=== PATIENT | female | born 1980 | race Caucasian/White ===

== ENCOUNTER 2017-02-27 13:27 | Emergency (ER) | payer OTHER ==
[~2017-02-27] VITALS: Ht 154.9 cm; Wt 61.2 kg
[~2017-02-27 13:27] MED LIST: ACETAMINOP80 MG/0.8 PO; ATHENOL325 MG; AUGMENTIN 500-500 MG PO; AUGMENTIN 875-1 EACH PO; BUPRENORPHINE HC8 MG SL; CEPHALEXIN500 MG PO; CLEOCIN HCL300 MG PO; CLONIDINE HCL0.1 MG; COLACE100 MG PO; DOXYCYCLINE HY100 M3 PO; FEOSOL325 MG PO; GARCINIA CAMBOGIA; IBUPROFEN400 MG PO; IBUPROFEN800 MG PO; IRON18 MG PO; KEFLEX500 MG PO; NICOTINE PATCH1 EAC1 TD; NORCO 5-325 TA1 EACH PO; ONCE DAILY1 EACH PO; OXYCODONE HCL5 MG PO; PENICILLIN V P500 MG PO; PRENATAL TABLE1 EAC1 PO; PROAIR HFA8.5 GM IH; PROTONIX20 MG PO; RASPBERRY KETONES; THERA M PLUS T1 EACH PO; TRAMADOL HCL50 MG PO; TYLENOL 8 HOUR650 MG PO; TYLENOL COLD &1 EACH PO; TYLENOL EXTRA500 MG PO; TYLENOL325 MG PO
[2017-02-27] MEDS ORDERED: ASPIRIN EC325 MG PO (13:48)
[2017-02-27] MEDS ORDERED: CIPRO500 MG PO (17:02)
== END 2017-02-27 17:15 | disposition home or self-care (01) ==
LOC: ED 13:27
DX: N39.0 Urinary tract infection, site not specified (principal); F17.200 Nicotine dependence, unspecified, uncomplicated; Z88.8 Allergy status to other drugs, medicaments and biological substances; Z79.899 Other long term (current) drug therapy; Z90.89 Acquired absence of other organs
CPT/HCPCS: 81001; 83605; 87088; 96361; 96374; 99283; J0696; J7030

== ENCOUNTER 2018-08-10 10:51 | Emergency (ER) | payer SELFPAY ==
[~2018-08-10] VITALS: Ht 154.9 cm; Wt 61.2 kg
[~2018-08-10 10:51] MED LIST changes: +ASPIRIN EC325 MG PO; +CIPRO500 MG PO
--- OUTSIDE RECORDS SUMMARY | 2018-08-10 10:56 | XMS ---
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 E.DVlad VISIT COUNT (12 MO.) 1 [facility] Gallardo TOTAL 1 NOTE: Visits indicate total known visits. ED/UCC VISIT TRACKING (12 MO.) 08/10/2018 10:[address] [facility] [place] TYPE: Emergency COMPLAINT: - SORES IN MOUTH INPATIENT VISIT TRACKING (12 MO.) No inpatient visits to display in this time frame [id number]
== END 2018-08-10 12:30 | disposition left against medical advice (07) ==
LOC: ED 10:51
DX: F15.10 Other stimulant abuse, uncomplicated (principal); Z87.891 Personal history of nicotine dependence; Z90.49 Acquired absence of other specified parts of digestive tract; Z79.899 Other long term (current) drug therapy
CPT/HCPCS: 81001; 87502; 99283

== ENCOUNTER 2021-06-20 11:23 | Emergency (ER) | payer OTHER ==
[~2021-06-20] VITALS: Ht 154.9 cm; Wt 72.4 kg
--- NOTE | ~2021-06-20 | EKG ---
[facility] [address] [place], [place] [address] Draft EK completed, results pending confirmation PATIENT NAME: ERIKA RIVERA Electrocardiogram DATE OF : 84 PHYSICIAN: PRELIMINARY REPORT #: [id number] REPORT IS CONFIDENTIAL AND NOT TO BE RELEASED WITHOUT AUTHORIZATION
[~2021-06-20 11:23] MED LIST changes: +BENADRYL ALLERG25 MG PO; +PRILOSEC OTC20 MG PO; +SUBOXONE 8 MG-1 EAC1 SL; +TRIAMCINOLONE A15 G1 TOP; +VITAMIN D250 MC1 PO; +ZOLOFT100 MG PO
--- OUTSIDE RECORDS SUMMARY | 2021-06-20 11:26 | XMS ---
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 EJulianne VISIT COUNT (12 MO.) 1 [facility]Y Gallardo TOTAL 1 NOTE: Visits indicate total known visits. ED/UCC VISIT TRACKING (12 MO.) 06/20/2021 11:23 [facility] [place] TYPE: Emergency COMPLAINT: - SOB INPATIENT VISIT TRACKING (12 MO.) No inpatient visits to display in this time frame [email or web address]
[2021-06-20] MEDS ORDERED: PREDNISONE20 MG PO (12:53)
[2021-06-20] MEDS ORDERED: ZITHROMAX250 MG PO (12:53)
--- NOTE | 2021-06-20 16:33 | EKG ---
[facility] [address] [place], [place] [address] Signed Sinus tachycardia Otherwise normal ECG When compared with ECG of 20-JUN-2021 11:36, (Unconfirmed) No significant change was found Confirmed by KEN PALACIOS DO ([id number]) on 06/20/2021 4:32:44 PM Electronically Signed By: KEN PALACIOS DO 06/20/21 1633 PATIENT NAME: ERIKA RIVERA Electrocardiogram DATE OF : 84 PHYSICIAN: KEN PALACIOS DO REPORT #: [id number] REPORT IS CONFIDENTIAL AND NOT TO BE RELEASED WITHOUT AUTHORIZATION
== END 2021-06-20 13:09 | disposition home or self-care (01) ==
LOC: ED 11:23
DX: J45.901 Unspecified asthma with (acute) exacerbation (principal); Z20.822 Contact with and (suspected) exposure to COVID-19; F17.200 Nicotine dependence, unspecified, uncomplicated; Z88.8 Allergy status to other drugs, medicaments and biological substances
CPT/HCPCS: 71045; 93005; 93010; 94640; 94664; 99285-25; C9803; J7512; U0003

== ENCOUNTER 2021-10-14 14:42 | Emergency (ER) | payer OTHER ==
[~2021-10-14] VITALS: Ht 154.9 cm; Wt 71.4 kg
[~2021-10-14 14:42] MED LIST changes: +PREDNISONE20 MG PO; +ZITHROMAX250 MG PO
--- OUTSIDE RECORDS SUMMARY | 2021-10-14 14:44 | XMS ---
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 Parvin has no Care Guidelines for this patient. Care History Medical/Surgical 06/21/2021 [facility] - [facility] CALLED PATIENT- NO PCP LISTED- PATIENT DID NOT ANSWER PHONE- UNABLE TO LEAVE A VM. - SENT NO PCP LETTER E.D. VISIT COUNT (12 MO.) 2 [facility] TOTAL 2 NOTE: Visits indicate total known visits. ED/UCC VISIT TRACKING (12 MO.) 10/14/2021 14:43 [facility] [place] TYPE: Emergency COMPLAINT: - VOMITING 06/20/2021 11:23 [facility] [place] TYPE: Emergency COMPLAINT: - SOB DIAGNOSES: - Nicotine dependence, unspecified, uncomplicated - Shortness of breath - Unspecified asthma with (acute) exacerbation - Contact with and (suspected) exposure to COVID-19 - Allergy status to other drugs, medicaments and biological substances INPATIENT VISIT TRACKING (12 MO.) No inpatient visits to display in this time frame [id number]
[2021-10-14] MEDS ORDERED: ONDANSETRON ODT4 MG PO (18:14)
== END 2021-10-14 18:28 | disposition home or self-care (01) ==
LOC: ED 14:42
DX: R11.2 Nausea with vomiting, unspecified (principal); R10.84 Generalized abdominal pain; F17.200 Nicotine dependence, unspecified, uncomplicated; Z88.8 Allergy status to other drugs, medicaments and biological substances
CPT/HCPCS: 36415; 80053; 81001; 83735; 84703; 85025; 96374; 99284-25; J2405; J7040

== ENCOUNTER 2022-05-14 08:41 | Emergency (ER) | payer OTHER ==
[~2022-05-14] VITALS: Ht 154.9 cm; Wt 71.2 kg
[~2022-05-14 08:41] MED LIST changes: +ONDANSETRON ODT4 MG PO
--- OUTSIDE RECORDS SUMMARY | 2022-05-14 08:44 | XMS ---
PreManage Notification: ERIKA RIVERA Security Nuclear Unit Operator Events No recent Security Events currently on file CRITERIA MET - Group Notification CARE PROVIDERS There are no care providers on record at this time. Parvin has no Care Guidelines for this patient. Care History Medical/Surgical 06/21/2021 [facility] - [facility] CALLED PATIENT- NO PCP LISTED- PATIENT DID NOT ANSWER PHONE- UNABLE TO LEAVE A VM. - SENT NO PCP LETTER E.D. VISIT COUNT (12 MO.) 3 [facility] TOTAL 3 NOTE: Visits indicate total known visits. ED/UCC VISIT TRACKING (12 MO.) [facility] COMPLAINT: - ABDOMINAL PAIN 10/14/2021 14:[address] [facility] [place] TYPE: Emergency COMPLAINT: - VOMITING DIAGNOSES: - Allergy status to other drugs, medicaments and biological substances - Nicotine dependence, unspecified, uncomplicated - Generalized abdominal pain - Nausea with vomiting, unspecified 06/20/2021 11:[address] [facility] [place] TYPE: Emergency COMPLAINT: - SOB DIAGNOSES: - Contact with and (suspected) exposure to COVID-19 - Shortness of breath - Allergy status to other drugs, medicaments and biological substances - Unspecified asthma with (acute) exacerbation - Nicotine dependence, unspecified, uncomplicated INPATIENT VISIT TRACKING (12 MO.) No inpatient visits to display in this time frame [email or web address]
[2022-05-14] MEDS ORDERED: METHADONE HCL5 MG PO (08:57)
== END 2022-05-14 12:12 | disposition home or self-care (01) ==
LOC: ED 08:41
DX: K59.03 Drug induced constipation (principal); T40.2X5A Adverse effect of other opioids, initial encounter; F17.200 Nicotine dependence, unspecified, uncomplicated; Z88.8 Allergy status to other drugs, medicaments and biological substances
CPT/HCPCS: 36415; 74176; 80053; 81003; 83690; 84703; 85025; 85060; 96372; 99284-25; J1885; J2212

== ENCOUNTER 2022-05-14 18:26 | Emergency (ER) | payer OTHER ==
[~2022-05-14] VITALS: Ht 154.9 cm; Wt 71.4 kg
[~2022-05-14 18:26] MED LIST changes: +METHADONE HCL5 MG PO
--- OUTSIDE RECORDS SUMMARY | 2022-05-14 18:34 | XMS ---
PreManage Notification: ERIKA RIVERA Security Cold Rolling Coordinator Events No recent Security Events currently on file CRITERIA MET - [facility] - 2 Visits in 30 Days - Group Notification CARE PROVIDERS There are no care providers on record at this time. Parvin has no Care Guidelines for this patient. Care History Medical/Surgical 06/21/2021 [facility] - [facility] CALLED PATIENT- NO PCP LISTED- PATIENT DID NOT ANSWER PHONE- UNABLE TO LEAVE A VM. - SENT NO PCP LETTER E.D. VISIT COUNT (12 MO.) 4 [facility] TOTAL 4 NOTE: Visits indicate total known visits. ED/UCC VISIT TRACKING (12 MO.) 05/14/2022 18:[address] [facility] [place] TYPE: Emergency COMPLAINT: - ABD PAIN WAS HERE EARLIER TODAY 05/14/2022 08:41 [facility] [place] [facility] [place] TYPE: Emergency COMPLAINT: - ABDOMINAL PAIN 10/14/2021 14:43 [facility] [place] [facility] [place] TYPE: Emergency COMPLAINT: - VOMITING DIAGNOSES: - Allergy status to other drugs, medicaments and biological substances - Nicotine dependence, unspecified, uncomplicated - Generalized abdominal pain - Nausea with vomiting, unspecified 06/20/2021 11:23 [facility] [place] [facility] [place] TYPE: Emergency COMPLAINT: - SOB DIAGNOSES: - Contact with and (suspected) exposure to COVID-19 - Shortness of breath - Allergy status to other drugs, medicaments and biological substances - Unspecified asthma with (acute) exacerbation - Nicotine dependence, unspecified, uncomplicated INPATIENT VISIT TRACKING (12 MO.) No inpatient visits to display in this time frame [id number]
== END 2022-05-14 22:24 | disposition left against medical advice (07) ==
LOC: ED 18:26
DX: K59.00 Constipation, unspecified (principal); R10.11 Right upper quadrant pain; F17.200 Nicotine dependence, unspecified, uncomplicated; Z88.8 Allergy status to other drugs, medicaments and biological substances; Z53.21 Procedure and treatment not carried out due to patient leaving prior to being seen by health care provider
CPT/HCPCS: 80053; 83690; 85025; 99284; A9270

== ENCOUNTER 2022-05-15 07:24 | Emergency (ER) | payer OTHER ==
[~2022-05-15] VITALS: Ht 154.9 cm; Wt 71.4 kg
--- OUTSIDE RECORDS SUMMARY | 2022-05-15 07:32 | XMS ---
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 Parvin has no Care Guidelines for this patient. Care History Medical/Surgical 06/21/2021 [facility] - [facility] CALLED PATIENT- NO PCP LISTED- PATIENT DID NOT ANSWER PHONE- UNABLE TO LEAVE A VM. - SENT NO PCP LETTER E.D. VISIT COUNT (12 MO.) 5 [facility] TOTAL 5 NOTE: Visits indicate total known visits. ED/UCC VISIT TRACKING (12 MO.) 05/15/2022 07:25 [facility] [place] [facility] TYPE: Emergency COMPLAINT: - ABDOMINAL PAIN 05/14/2022 18:27 [facility] [place] COMPLAINT: - ABD PAIN WAS HERE EARLIER TODAY 05/14/2022 08:[address] [facility] [address] [facility] [place] TYPE: Emergency COMPLAINT: - ABDOMINAL PAIN 10/14/2021 14:[address] [facility] [address] [facility] [place] TYPE: Emergency COMPLAINT: - VOMITING DIAGNOSES: - Allergy status to other drugs, medicaments and biological substances - Nicotine dependence, unspecified, uncomplicated - Generalized abdominal pain - Nausea with vomiting, unspecified 06/20/2021 11:[address] [facility] [address] [facility] [place] TYPE: Emergency COMPLAINT: - SOB DIAGNOSES: - Contact with and (suspected) exposure to COVID-19 - Shortness of breath - Allergy status to other drugs, medicaments and biological substances - Unspecified asthma with (acute) exacerbation - Nicotine dependence, unspecified, uncomplicated INPATIENT VISIT TRACKING (12 MO.) No inpatient visits to display in this time frame [id number]
--- NOTE | 2022-05-15 13:11 | EKG ---
[facility] [address] [place] [address] Signed Normal sinus rhythm Prolonged QT Abnormal ECG No previous ECGs available Confirmed by VANDANA XIONG MD ([id number]) on 05/15/2022 1:11:11 PM Electronically Signed By: VANDANA XIONG MD 05/15/22 1311 PATIENT NAME: ERIKA RIVERA DAVIN Electrocardiogram DATE OF : 84 PHYSICIAN: VANDANA XIONG MD REPORT #: [id number] REPORT IS CONFIDENTIAL AND NOT TO BE RELEASED WITHOUT AUTHORIZATION
== END 2022-05-15 12:33 | disposition left against medical advice (07) ==
LOC: ED 07:24
DX: K59.00 Constipation, unspecified (principal); R10.31 Right lower quadrant pain; F17.200 Nicotine dependence, unspecified, uncomplicated; Z88.8 Allergy status to other drugs, medicaments and biological substances; Z79.899 Other long term (current) drug therapy; Z20.822 Contact with and (suspected) exposure to COVID-19
CPT/HCPCS: 36415; 71045; 74176; 80053; 81001; 83605; 84703; 85025; 85610; 85730; 87502; 93005; 93010; 96372; 99285-25; C9803; J1170; J2212; U0003